=== PATIENT | male | born 1950 | race Caucasian/White ===

== ENCOUNTER 2022-09-27 15:04 | Outpatient (CLI) | payer MEDICARE, SELFPAY ==
[2022-09-27 22:10] LABS: Albumin* 3.9 g/dL (3.3-5.0); Chloride* 102 mmol/L (96-114); Potassium* 4.2 mmol/L (3.6-5.1); Sodium* 138 mmol/L (135-149)
[2022-09-27 22:12] LABS: Creatinine* 0.7 mg/dL (0.5-1.5); Estimated Glomerular Filt Rate 99 ml/min
[2022-09-27 22:13] LABS: Alanine Aminotransferase* 9 U/L (4-50); Alkaline Phosphatase* 58 U/L (40-150); Aspartate Amino Transferase* 24 U/L (12-35); Bilirubin Total* 0.7 mg/dL (0.1-1.5); Blood Urea Nitrogen* 19 mg/dL (7-30); Carbon Dioxide* 33 mmol/L (20-32); Glucose* 96 mg/dL (60-115); Total Protein* 6.7 g/dL (6.0-8.3)
== END 2022-09-27 15:05 | disposition home or self-care (01) ==
PROVIDERS: PCP Family Medicine; Visit Provider Family Medicine
DX: G90.3 Multi-system degeneration of the autonomic nervous system (principal); I73.00 Raynaud's syndrome without gangrene; R60.9 Edema, unspecified
CPT/HCPCS: 80053; 84443

== ENCOUNTER 2022-10-03 13:53 | Outpatient (CLI) | payer MEDICARE, SELFPAY ==
--- NOTE | 2022-10-03 14:00 | CRLHL7_ITS ---
For Patients: As a result of the Century Cures Act, medical imaging exams and procedure reports are released immediately into your electronic medical record. You may view this report before your referring provider. If you have questions, please contact your health care provider. INDICATION: ULCERS ON TOES, EVALUATE PAD TECHNIQUE: Bilateral lower extremity arterial duplex ultrasound with color Doppler and spectral waveform analysis. COMPARISON: None. FINDINGS: Multiple sonographic jarvis-scale images demonstrate atherosclerotic plaque in both lower extremities. Right leg: Systolic velocities are within normal limits. Color Doppler and spectral waveform analysis demonstrates biphasic waveforms are demonstrated throughout. Left leg: Systolic velocities are within normal limits. Color Doppler and spectral waveform analysis demonstrates biphasic waveforms are demonstrated throughout. IMPRESSION: Bilateral atherosclerosis in the lower extremity arteries. No major occlusions or significant stenoses. Dictated by Jake Chaudhary MD @ 10/03/2022 3:27:02 PM (Electronically Signed)
== END 2022-10-03 13:54 | disposition home or self-care (01) ==
LOC: US 13:55
PROVIDERS: PCP Family Medicine; Visit Provider Family Medicine
DX: I73.00 Raynaud's syndrome without gangrene (principal); I70.203 Unspecified atherosclerosis of native arteries of extremities, bilateral legs
CPT/HCPCS: 93926

== ENCOUNTER 2022-10-25 13:31 | Outpatient (CLI) | payer MEDICARE, SELFPAY ==
[2022-10-25 22:00] LABS: Albumin* 4.1 g/dL (3.3-5.0)
[2022-10-25 22:03] LABS: Alkaline Phosphatase* 67 U/L (40-150); Aspartate Amino Transferase* 23 U/L (12-35); Bilirubin Direct* 0.1 mg/dL (0.0-0.5); Bilirubin Total* 0.8 mg/dL (0.1-1.5); Cholesterol* 142 mg/dL (90-199); HDL Cholesterol* 58 mg/dL (>=40); LDL Cholesterol Calculated 72 mg/dL (<100); Total Protein* 7.1 g/dL (6.0-8.3); Triglycerides* 59 mg/dL (40-149)
[2022-10-25 22:04] LABS: Alanine Aminotransferase* 6 U/L (4-50)
[2022-10-27 19:00] LABS: Prostate Specific Antigen Free 0.7 ng/mL; Prostate Specific Antigen%Free 9 %; Prostate Specific AntigenTotal 7.6 ng/mL (0.0-4.0)
== END 2022-10-25 13:32 | disposition home or self-care (01) ==
LOC: LKVREF 13:32
PROVIDERS: PCP Family Medicine; Visit Provider Family Medicine
DX: Z86.39 Personal history of other endocrine, nutritional and metabolic disease (principal); Z87.898 Personal history of other specified conditions; Z12.5 Encounter for screening for malignant neoplasm of prostate; Z13.6 Encounter for screening for cardiovascular disorders
CPT/HCPCS: 80061; 80076; 84153; 84154

== ENCOUNTER 2023-05-07 11:00 | Outpatient (RCR) | payer MEDICARE, SELFPAY ==
--- NOTE | 2022-08-30 14:23 | PT.OPDN ---
PT [place] [facility] Daily Note PT [facility] Daily Note Start: 03/05/22 17:45 Freq: Status: Active Protocol: Document 08/28/22 16:11 BMS (Rec: 08/28/22 16:12 BMS [id number]) E-signed By Yulia Brunson, PT PT OP Daily Progress Note Visit Information Note Type Daily Note,Recert/Progress Note Visit Number [id number] Insurance Authorized Visits no preauth no visit limit [facility] Insurance Information Recert Due Date 09/26/22 Insurance Name Medicare B,[facility] Medical Diagnosis MSA multiple system atrophy Treating Diagnosis abnormal gait, debility/ generalized weakness, impoverished movement, loss of motor control and balance, impaired transfers, transitions, impaired ADL and IADL performance and self cares Referring MD Roxanne Hubbard MD ([facility]) Subjective Subjective walking has really been tough. and balance is gettting tougher over past couple of weeks. am working on the exercises you gave me think they are going well. havent fallen since last time in the closet. Precautions Treatment Precautions/Contraindications MSA -P falls autonomic, hypotension w standing may be asymptomatic edema B f Home Exercise Home Exercise Comments Access Code: [email or web address] URL: [email or web address] Date: 08/14/2022 Prepared by: Yulia Brunson Exercises ? Supine Bridge - 1 x daily - 5 x weekly - 1-3 sets - 10-20 reps - 5-10 sec hold ? Supine Active Straight Leg Raise - 1 x daily - 5 x weekly - 1-3 sets - 10-20 reps - 5- 10 sec hold ? Sidelying Hip Abduction - 1 x daily - 5 x weekly - 1-3 sets - 10-20 reps - 5-10 sec hold - hold 30-60 sec stretch ? Supine Lower Trunk Rotation - 1 x daily - 5 x weekly - 1-3 sets - 10-20 reps - 5-10 sec hold ? Seated Hamstring Stretch with Chair - 3 x daily - 5 x weekly - 1-3 sets - hold 30-60 sec stretch Objective Other/Pertinent Objective all gait and balance w gait belt and therapist assist for safety: Patient Instructed in Risks/Benefits Yes Therapeutic Exercise Therapeutic Exercise Minutes (minutes) 30 Therapeutic Exercise: To Restore HS and calf stretches Functional Status prone anterior structure stretches add knee flex x 10 each side, then hip windshield wipers for control B. 2# shoulder flex w TA x 10, 2# chest press each UE x 10 tricep 1# x 10 b bug x 10 alternating sides prone to quadruped amb for endurance dynamic stretch and functional strength 150' FWW with much more difficult gait pattern, required total assist x 3 for LOB in several directions. Therapeutic Activity Therapeutic Activity Minutes (minutes) 15 Therapeutic Activities Comments - sit/ stand 4 x 5 with increased speed and varied height surface. use of ue on walker and one on surface. focus on full upright, controlled descent and balance when upright - declined floor transfer which is gillespie with his fatigue after gait today. - bed mobility with cues to push through LE and reach through UE. Neuromuscular Re-Ed Neuromuscular Reeducation Minutes ( 15 minutes) Neuromuscular Reeducation Comments all gait and balance w gait belt and therapist assist for safety: - work at parallel bars for turns without LOB, - NBOS EO, EC< with head turns x x10, nods x 10 UE raise hands from bar x 10. marching x 10 w UE support PRN and mod assist by therapist Treatment Minutes Timed Code Treatment Minutes 60 Total Treatment Time 60 Billing Units Neuromuscular Reeducation Units 1 Therapeutic Activity Units 1 Therapeutic Exercise Units 2 Assessment/Impression Assessment/Impression Patient continues to benefit from skilled physical therapy to work on balance and transfers. Gait is used in clinic to work on endurance, active stretch and functional strength as well as balance, does still use walker at home for mobilization. He has precarious balance at times but feels that after therapy session is better able to stabilize for several days. Patient does have new home program issued mid August with which he is working on at home but is unable to safely and effectively perform transfer balance training challenges and requires cueing for more efficient transfers and bed mobility at home. Skilled therapy to maintain current level of function and to improve technique with mobility and bed mobility Plan of Care Physical Therapy Goals MET 1) Pt and instructed in home program for mobility, flexibility and functional strength PROGRESSING 2) instruct in floor transfers, demo independence or modified I with task MET 3) Pt demo ability to amb 20-30 feet with least restrictive gait aid/none for navigation of home bathroom MET 4) Instruct in home safety and mobility equipment including FWW, bed step, rail etc, and poss Ustep PROGRESSING 5) Patient demo ability to perform all aspects of bed mobility with modified independence and safety PROGRESSING 6) Improved balance (renae posterior) with improved balance strategies to maintain ability to stand and transfer and amb short distances in home Recertification Information Recertification Start Date 08/26/22 Recertification Due Date 09/26/22 Reasons to Continue Skilled Therapy Patient continues to benefit from skilled physical therapy to work on balance and transfers. Gait is used in clinic to work on endurance, active stretch and functional strength as well as balance, does still use walker at home for mobilization. He has precarious balance at times but feels that after therapy session is better able to stabilize for several days. Patient does have new home program issued mid August with which he is working on at home but is unable to safely and effectively perform transfer balance training challenges and requires cueing for more efficient transfers and bed mobility at home. Skilled therapy to maintain current level of function and to improve technique with mobility and bed mobility. He is unable to attain and move through prone at home due to bed, and floor transfers continue to be a concern as he does have hx of falls. Rehabilitation Potential good Continued Plan of Care and Interventions ther ex, neuro re ed, static and dynamic balance, transfer training and adaptation, gait and bed mobility, floor transfers Provider Signature Shows Agreement With POC & Medical Necessity Physician Comment/Change Comment or Changes Physician NPI Number #
--- NOTE | 2022-10-30 12:55 | PT.OPDN ---
PT [place] Out[facility] Daily Note PT [facility] Out[facility] Daily Note Start: 03/05/22 17:45 Freq: Status: Active Protocol: Document 10/30/22 11:12 BMS (Rec: 10/30/22 12:55 BMS [id number]) E-signed By Yulia Brunson, PT PT OP Daily Progress Note Visit Information Note Type Daily Note,Recert/Progress Note Visit Number [id number] Insurance Authorized Visits no preauth no visit limit [facility] Insurance Information Recert Due Date 11/30/22 Insurance Name Medicare B,[facility] Medical Diagnosis MSA multiple system atrophy Treating Diagnosis abnormal gait, debility/ generalized weakness, impoverished movement, loss of motor control and balance, impaired transfers, transitions, impaired ADL and IADL performance and self cares Referring MD Roxanne Hubbard MD ([facility]) Subjective Subjective working on exercises every day . using WC most of the time now but do stand to transfer and in bathroom etc. I feel like therapy is keeping me more mobile and able to work on things here that I cant do at home. Precautions Treatment Precautions/Contraindications MSA -P falls autonomic, hypotension w standing may be asymptomatic edema B f Home Exercise Home Exercise Comments Access Code: [email or web address] URL: [email or web address] Date: 10/30/2022 Prepared by: Yulia Brunson Exercises Sit to Stand with Counter Support - 1 x daily - 5 x weekly - 1-3 sets - 10-20 reps - 5-10 sec hold - hold 30-60 sec stretch Standing Hip Abduction with Counter Support - 1 x daily - 5 x weekly - 1-3 sets - 10-20 reps - 5-10 sec hold - hold 30 -60 sec stretch Heel Raises with Counter Support - 1 x daily - 5 x weekly - 1-3 sets - 10-20 reps - 5-10 sec hold Supine Bridge - 1 x daily - 5 x weekly - 1-3 sets - 10-20 reps - 5-10 sec hold Supine Heel Slide - 1 x daily - 5 x weekly - 1-3 sets - 10- 20 reps - 5-10 sec hold Hooklying Shoulder I - 1 x daily - 5 x weekly - 1-3 sets - 10-20 reps - 5-10 sec hold Curl Up with Reach - 1 x daily - 5 x weekly - 1-3 sets - 10- 20 reps - 5-10 sec hold Seated Scapular Protraction with Resistance - 1 x daily - 5 x weekly - 1-3 sets - 10-20 reps - 5-10 sec hold Supine Knee and Hip Extension with Resistance - 1 x daily - 5 x weekly - 1-3 sets - 10-20 reps - 5-10 sec hold Objective Other/Pertinent Objective all gait and balance w gait belt and therapist assist for safety: Patient Instructed in Risks/Benefits Yes Therapeutic Exercise Therapeutic Exercise Minutes (minutes) 30 Therapeutic Exercise: To Restore Access Code: [email or web address] Functional Status URL: [email or web address] Date: 10/30/2022 Prepared by: Yulia Ribeiro Sit to Stand with Counter Support - 1 x daily - 5 x weekly - 1-3 sets - 10-20 reps - 5-10 sec hold - hold 30-60 sec stretch Standing Hip Abduction with Counter Support - 1 x daily - 5 x weekly - 1-3 sets - 10-20 reps - 5-10 sec hold - hold 30 -60 sec stretch Heel Raises with Counter Support - 1 x daily - 5 x weekly - 1-3 sets - 10-20 reps - 5-10 sec hold Supine Bridge - 1 x daily - 5 x weekly - 1-3 sets - 10-20 reps - 5-10 sec hold Supine Heel Slide - 1 x daily - 5 x weekly - 1-3 sets - 10- 20 reps - 5-10 sec hold Hooklying Shoulder I - 1 x daily - 5 x weekly - 1-3 sets - 10-20 reps - 5-10 sec hold Curl Up with Reach - 1 x daily - 5 x weekly - 1-3 sets - 10- 20 reps - 5-10 sec hold Seated Scapular Protraction with Resistance - 1 x daily - 5 x weekly - 1-3 sets - 10-20 reps - 5-10 sec hold Supine Knee and Hip Extension with Resistance - 1 x daily - 5 x weekly - 1-3 sets - 10-20 reps - 5-10 sec hold - prone prop for stretching anterior - prone HS curls x 10 L, x 10 R. - manual stretches hips ER/IR and ext - Therapeutic Activity Therapeutic Activity Minutes (minutes) 20 Therapeutic Activities Comments sit/ stand 3 x 5 with significant cueing for speed, mod to max assist x initial few reps due to poverty of initiation. Work on in/out of bed today required max assist for LE management. bed mobility including roll from supine to side L x 5, R x 5, to belly. - prone to quadruped and back down with max assist x 3. Neuromuscular Re-Ed Neuromuscular Reeducation Minutes ( 13 minutes) Neuromuscular Reeducation Comments - standing balance with cone of stability challenges at walker in front and mat behind . x 10 Ant, x 10 post, x 10 A/ P - lateral weight shifts x 10 - marching in place - quadruped weight shifts through UE x 10 lateral, then from quad to robert pose x 10 Treatment Minutes Timed Code Treatment Minutes 63 Total Treatment Time 63 Billing Units Neuromuscular Reeducation Units 2 Therapeutic Activity Units 1 Therapeutic Exercise Units 1 Assessment/Impression Assessment/Impression patient demo increased difficulty freezing and rigidity noted today, even with cueing increased difficulty with balance and mobility. worked also on bed mobility. patient remains appropriate for maintenance and decline prevention strategies. Today did require increased assist for LE management in bed, and therapist did have total assist for patient LOB when transitioning sidelying ot sit . sit to stand significantly slowed, < 5 reps in 30 sec. after session was able to perform much more efficiently and quickly. however patient was able to transition from sidelying to prone with min assist for stretching anterior structures and strengthening posterior. Still responds well to stimulability and maintains adaptations as physically able. Plan of Care Physical Therapy Goals MET 1) Pt and instructed in home program for mobility, flexibility and functional strength PROGRESSING 2) instruct in floor transfers, demo independence or modified I with task MET 3) Pt demo ability to amb 20-30 feet with least restrictive gait aid/none for navigation of home bathroom MET 4) Instruct in home safety and mobility equipment including FWW, bed step, rail etc, and poss Ustep PROGRESSING 5) Patient demo ability to perform all aspects of bed mobility with modified independence and safety PROGRESSING 6) Improved balance (renae posterior) with improved balance strategies to maintain ability to stand and transfer and amb short distances in home Daily Plan of Care Continue per POC Daily Plan of Care Comments functional strength, mobility, balance, gait, ROM, transfers Recertification Information Recertification Start Date 10/30/22 Recertification Due Date 11/30/22 Reasons to Continue Skilled Therapy Patient continues to benefit from skilled physical therapy to work on balance and transfers, adding in bed mobility and adaptive skills as he condition progresses. Gait is used in clinic to work on endurance, active stretch and functional strength as well as balance, does still use walker at home in limited dose for mobilization. He has precarious balance at times but feels that after therapy session is better able to stabilize for several days. Patient does have new home program issued today, with which he is working on at home but is unable to safely and effectively perform transfer balance training challenges and requires cueing for more efficient transfers and bed mobility at home. Skilled therapy to maintain current level of function and to improve technique with mobility and bed mobility. He is unable to attain and move through prone at home due to bed, and floor transfers continue to be a concern as he does have hx of falls. Rehabilitation Potential good Continued Plan of Care and Interventions continue working on ther ex, neuro re ed, static and dynamic balance, transfer training and adaptation, gait and bed mobility, floor transfers as able. adaptive equipment recommendations and modifications adaptations to home program as disease progresses until such time that he needs home care Provider Signature Shows Agreement With POC & Medical Necessity Physician Comment/Change Comment or Changes
--- NOTE | 2022-12-06 13:50 | PT.OPDN ---
PT [place] Out[facility] Daily Note PT [facility] Daily Note Start: 03/05/22 17:45 Freq: Status: Active Protocol: Document 12/05/22 18:20 BMS (Rec: 12/05/22 18:23 BMS [id number]) E-signed By Yulia Brunson, PT PT OP Daily Progress Note Visit Information Note Type Daily Note,Recert/Progress Note Visit Number [id number] Insurance Authorized Visits no preauth no visit limit [facility] Insurance Information Recert Due Date 01/04/23 Insurance Name Medicare B,[facility] Medical Diagnosis MSA multiple system atrophy Treating Diagnosis abnormal gait, debility/ generalized weakness, impoverished movement, loss of motor control and balance, impaired transfers, transitions, impaired ADL and IADL performance and self cares Referring MD Roxanne Hubbard MD ([facility]) Subjective Subjective walking around house more for exercise, harder to control saliva and speech, slower and more tight overall. Precautions Treatment Precautions/Contraindications MSA -P falls autonomic, hypotension w standing may be asymptomatic edema B f Home Exercise Home Exercise Comments Access Code: [email or web address] URL: [email or web address]/ Date: 10/30/2022 Prepared by: Yulia Brunson Exercises Sit to Stand with Counter Support - 1 x daily - 5 x weekly - 1-3 sets - 10-20 reps - 5-10 sec hold - hold 30-60 sec stretch Standing Hip Abduction with Counter Support - 1 x daily - 5 x weekly - 1-3 sets - 10-20 reps - 5-10 sec hold - hold 30 -60 sec stretch Heel Raises with Counter Support - 1 x daily - 5 x weekly - 1-3 sets - 10-20 reps - 5-10 sec hold Supine Bridge - 1 x daily - 5 x weekly - 1-3 sets - 10-20 reps - 5-10 sec hold Supine Heel Slide - 1 x daily - 5 x weekly - 1-3 sets - 10- 20 reps - 5-10 sec hold Hooklying Shoulder I - 1 x daily - 5 x weekly - 1-3 sets - 10-20 reps - 5-10 sec hold Curl Up with Reach - 1 x daily - 5 x weekly - 1-3 sets - 10- 20 reps - 5-10 sec hold Seated Scapular Protraction with Resistance - 1 x daily - 5 x weekly - 1-3 sets - 10-20 reps - 5-10 sec hold Supine Knee and Hip Extension with Resistance - 1 x daily - 5 x weekly - 1-3 sets - 10-20 reps - 5-10 sec hold Objective Other/Pertinent Objective all gait and balance w gait belt and therapist assist for safety: Patient Instructed in Risks/Benefits Yes Therapeutic Exercise Therapeutic Exercise Minutes (minutes) 15 Therapeutic Exercise: To Restore on wedge with pillow to Functional Status elevate head/torso resulted in better secretion control and better speech pattern and loudness - 2 x 30-60 sec B stretches for hip flex, ext, knee ext, ER and IR of hip. - heel slides x 10 each side - bridging x 15 - seated LAQ x 10 each side - seated green tband HS curl x 10 each side - red band eversion and plantarflexion - green weighted bar shoulder flex x 8, chest press x 8 LE B. increased rigidity noted this date. Therapeutic Activity Therapeutic Activity Minutes (minutes) 21 Therapeutic Activities Comments bed and chair repositioning instruct in tricep ext for lift to scoot and for scoot one LE then contralateral LE - sit/ stand 3 x 5 with significant cueing for speed, mod to max assist x initial few reps due to poverty of initiation. - Work on in/out of bed today required max assist for LE management. - bed mobility up and down, to side, bridging - standing reach into cupboard with max assist by therapist for balance x 10 green weight bar, then rest, then unilateral 8 oz bottle x 10 each side - forward bend to tall mat and return to upright with max assist by therapist x 10 with turn to put pillow from inth to his 4WW Neuromuscular Re-Ed Neuromuscular Reeducation Minutes ( 24 minutes) Neuromuscular Reeducation Comments in parallel bars, with gait belt and therapist assist: forward step to target tape then WB through LE x 10 L, R - stagger stance weight shifts x 10 each foot leading - side steps 4 x 5 - back steps max assist required. post lean with recovery x 10 foot placement proprioception x 10 flat floor, - standing balance with cone of stability challenges at walker in front and mat behind . x 10 Ant, x 10 post, x 10 A/ P - lateral weight shifts x 10 - marching in place Treatment Minutes Timed Code Treatment Minutes 60 Total Treatment Time 60 Billing Units Neuromuscular Reeducation Units 2 Therapeutic Activity Units 1 Therapeutic Exercise Units 1 Assessment/Impression Assessment/Impression patient demo signs of advancing disease, working to combat loss of mobility and flexibility. Also working on breath work during exercises to hopefully prevent pneumonia , renae with increased difficulty controlling secretions is at higher risk of aspiration. Focus more on functional tasks and fall prevention with transfers, balance and functional strength and mobility. patient is appropriate to continue skilled physical therapy to maintain level of function and adapt to progressive loss in chronic disease. Plan of Care Physical Therapy Goals MET 1) Pt and instructed in home program for mobility, flexibility and functional strength unable, has lost ths ability 2 ) instruct in floor transfers, demo independence or modified I with task MET ONLY WIth max assist and energy use prohibitive for daily use 3) Pt demo ability to amb 20-30 feet with least restrictive gait aid/none for navigation of home bathroom MET 4) Instruct in home safety and mobility equipment including FWW, bed step, rail etc, and poss Ustep PROGRESSING 5) Patient demo ability to perform all aspects of bed mobility with modified independence and safety continuing to work to maintain 6) Improved balance (renae posterior) with improved balance strategies to maintain ability to stand and transfer and amb short distances in home Daily Plan of Care Continue per POC Daily Plan of Care Comments functional strength, mobility, balance, gait, ROM, transfers Recertification Information Recertification Start Date 12/05/22 Recertification Due Date 01/04/23 Reasons to Continue Skilled Therapy patient demo signs of advancing disease including increased rigidity, increased difficulty communicating, slowed and poverty of motion, ataxia, weakness, loss of hip and knee extension, delayed initiation. able to demo increased speed and size of motions with cueing and assist . , working to combat loss of mobility and flexibility. Also working on breath work during exercises to hopefully prevent pneumonia, renae with increased difficulty controlling secretions is at higher risk of aspiration. Focus more on functional tasks and fall prevention with transfers, balance and functional strength and mobility. patient is appropriate to continue skilled physical therapy to maintain level of function and adapt to progressive loss in chronic disease. Rehabilitation Potential excellent motivation, unfortunately progressive neurodegenerative disease Continued Plan of Care and Interventions transfers, functional strength , ROM and stretching, balance and functional tasks to maximize independence to allow remain in own home with as caregiver Provider Signature Shows Agreement With POC & Medical Necessity Physician Comment/Change Comment or Changes Physician NPI Number #
--- NOTE | 2023-03-26 13:30 | PT.OPDN ---
PT [facility] Daily Note PT [facility] Out[facility] Daily Note Start: 03/05/22 17:45 Freq: Status: Active Protocol: Document 03/26/23 13:19 BMS (Rec: 03/26/23 13:30 BMS [id number]) E-signed By Yulia Brunson, PT PT OP Daily Progress Note Visit Information Note Type Daily Note Visit Number [id number] Insurance Information Recert Due Date 04/26/23 Insurance Name Medicare B,[employer] Medical Diagnosis MSA multiple system atrophy Treating Diagnosis abnormal gait, debility/ generalized weakness, impoverished movement, loss of motor control and balance, impaired transfers, transitions, impaired ADL and IADL performance and self cares Referring MD Roxanne Rainey, Anna GODFREY, Subjective Subjective had 1 fall since I saw you last time. feel more weakness no pain though shoulders and knees are really tight. doing the exercises every morning. still can do bed mobility by myself but Tatiana is helping me into bed now Precautions Treatment Precautions/Contraindications MSA -P falls autonomic, hypotension w standing may be asymptomatic edema B f Home Exercise Home Exercise Comments Supine Heel Slide - 1 x daily - 5 x weekly - 1-3 sets - 10- 20 reps - 5-10 sec hold Hooklying Shoulder I - 1 x daily - 5 x weekly - 1-3 sets - 10-20 reps - 5-10 sec hold Curl Up with Reach - 1 x daily - 5 x weekly - 1-3 sets - 10- 20 reps - 5-10 sec hold Seated Scapular Protraction with Resistance - 1 x daily - 5 x weekly - 1-3 sets - 10-20 reps - 5-10 sec hold Supine Knee and Hip Extension with Resistance - 1 x daily - 5 x weekly - 1-3 sets - 10-20 reps - 5-10 sec hold Objective Patient Instructed in Risks/Benefits Yes Therapeutic Exercise Therapeutic Exercise Minutes (minutes) 30 Therapeutic Exercise: To Restore curlups from plinth x 10, sit Functional Status backs from upright with therapist assist x10 stretches 3 x60 sec HS each side, then 3 x 60 sec B calf stretches. marching standing, encouraged to stomp as well to get the neural input. and working on foot placement for stance LAQ x 10 each side after HS and calf stretches by therapist HS stretches 2 x60 sec B green bar overhead press x 10 green bar shoulder flex in recline on wedge x 10, chest press green bar x 10, 4# x 10, skull crusher screen repairer w green bar x 10 tricep ext green bar @ x 10 L, R bicep curls 3# 10 B green bar chest press x 15 bridge w ball adduct x 10 ambulate with Ustep walker 4 x 15' with therapist CGA and gait belt. to access parallel bars, large mat table and to power chair. work on balance in standing, chair transfers and assist for balance corrections and cues. Therapeutic Activity Therapeutic Activity Minutes (minutes) 15 Therapeutic Activities Comments - sit/ stand 3 x 5 (power chair, green room chair, plinth) mod assist by therapist and cues for shifting weight forward, driving down through LE to floor, and tucking bottom under in standing -worked on self repositioning in chair in front of mirror using parallel bars for UE assist. worked also on pushing self up with UE to move LE forward and sideways -bed mobility with roll to side, side to sit Neuromuscular Re-Ed Neuromuscular Reeducation Minutes ( 15 minutes) Neuromuscular Reeducation Comments worked on seated posture to combat R slump/lean that is developing. lateral weight shifts x 5 with UE stretch to side over head each side, then x 10 w UE crossed on chest while seated balance reactions in unsupported sitting wtih twists x 10 each direction, head nods and rotations, and with external perturbations. encouraged to sit tall in chair without leaning on back rest to work on this safely at home n parallel bars, with gait belt and therapist assist: forward step to target tape then WB through LE x 10 L, R - stagger stance weight shifts x 10 each foot leading - side steps 4 x 5 - back steps max assist required. post lean with recovery x 10 foot placement proprioception x 10 flat floor, - standing balance with cone of stability challenges at walker in front and mat behind . x 10 Ant, x 10 post, x 10 A/ P - lateral weight shifts x 10 - marching in place [ End ] Treatment Minutes Timed Code Treatment Minutes 60 Total Treatment Time 60 Billing Units Neuromuscular Reeducation Units 1 Therapeutic Activity Units 1 Therapeutic Exercise Units 2 Assessment/Impression Assessment/Impression patient has progressed to level of care needing more assist with degenerative disease. atrophy evident in arms, legs and face as well as R sided weakness more prominent. working primarily on transfer strength and technique, balance with standing for transfers to reduce caregiver load, alternate strategies for transfers and transitions including bed mobility, and for seated balance and stability. Poverty of motion has progressed and slowness of same. rhythmic clapping has been incorporated to assist in speed and rhythm of movment. patient continues to be motivated and great participation however memory decline is becoming more apparent as well, and is having much difficulty with secretion management - did have botox again yest says would be 2 weeks to see difference with higher dose. also continue to work on ways to keep him as active as possible to participate in family time such as donaldson this and quality of life. Plan of Care Physical Therapy Goals 1) Pt demo modified independent bed mobility for in/out of bed and positioning to reduce risk of pressure ulcers. 2) Pt demo safe transfers with stand by assist or min assist from variety of surfaces and environments to allow modified independence and refduce caregiver load. 3) Pt demo ability to perform adaptive home program for functional strength, ROM, transfers balance and mobility to reduce risk of falls and improve self mobility in home and community. 4) Patient participate in home and clinic programs to maintain Daily Plan of Care Comments Remains appropriate for skilled physical therapy to maintain independence to decrease caregiver load, for longevity and management of chronic degenerative conditions. appropriate for work on modified transfers and transitions, weightbearing for lung clearing and cardiovascular benefits as well as bone density, ther ex for strength and neuro for balance Recertification Information Recertification Start Date 03/26/23 Recertification Due Date 04/24/23 Reasons to Continue Skilled Therapy see assessment Rehabilitation Potential maintenance and training in degenerative disease Continued Plan of Care and Interventions ther ex, neuro inna, ther activity, ther exercise, ROM/ balance gait, self care, caregiver instruction, equipment assist as able Provider Signature Shows Agreement With POC & Medical Necessity Physician Comment/Change Comment or Changes Physician NPI Number #
--- NOTE | 2023-05-07 13:00 | PT.OPDN ---
PT [facility] Daily Note PT [facility] Outpatient Daily Note Start: 03/05/22 17:45 Freq: Status: Active Protocol: Document 05/07/23 12:48 BMS (Rec: 05/07/23 12:59 BMS [id number]) E-signed By Yulia Brunson, PT PT OP Daily Progress Note Visit Information Note Type Daily Note Visit Number [id number] Insurance Authorized Visits no preauth no visit limit [facility] Insurance Information Recert Due Date 06/06/23 Insurance Name Medicare B,[facility] Medical Diagnosis MSA multiple system atrophy Treating Diagnosis abnormal gait, debility/ generalized weakness, impoverished movement, loss of motor control and balance, impaired transfers, transitions, impaired ADL and IADL performance and self cares Referring MD Roxanne Hubbard MD [facility], Anna GODFREY, Subjective Subjective accompanied by today, who adds to the subjective. she states patient is losing functional ability including standing balance and transfers , requires mod to max assist for transfers but still is able to move more at therapy. Also having more episodes of low blood pressure, renae after meals but at seemingly random times. intending to followup with team at [place], also increased difficulty with swallowing saliva but does not have issues with managemetnt at night Precautions Treatment Precautions/Contraindications MSA -P falls autonomic, hypotension w standing may be asymptomatic edema B f Home Exercise Home Exercise Comments Supine Heel Slide - 1 x daily - 5 x weekly - 1-3 sets - 10- 20 reps - 5-10 sec hold Hooklying Shoulder I - 1 x daily - 5 x weekly - 1-3 sets - 10-20 reps - 5-10 sec hold Curl Up with Reach - 1 x daily - 5 x weekly - 1-3 sets - 10- 20 reps - 5-10 sec hold Seated Scapular Protraction with Resistance - 1 x daily - 5 x weekly - 1-3 sets - 10-20 reps - 5-10 sec hold Supine Knee and Hip Extension with Resistance - 1 x daily - 5 x weekly - 1-3 sets - 10-20 reps - 5-10 sec hold Objective Patient Instructed in Risks/Benefits Yes Therapeutic Exercise Therapeutic Exercise Minutes (minutes) 28 Therapeutic Exercise: To Restore -prolonged stretches B hips Functional Status for rotation, extension, adductor mobility and piriformis and glute, calves -bridges with UE over chest x 15 -chest press x 10 2# -overhead stretch with UE above on wedge, LE extended and breath work to allow opening of anterior chain and diaphragm for secretion clearing from lungs to reduce risk of aspiration pneumonia -green band HS curls, LAQ -2# bar UE overhead to 90 as tolerated x 10 - breathing in seated and hooklying -curl ups x 5 -rotations hooklying low trunk w abdominal control x 10 -HS curl green x 10 B -scap retract in sitting -chin tuck in supine x 10 - manual UT stretches standing hip abduct x 10, ext x 10, marching x 10, heel raises x 10, toe raises x 10 Therapeutic Activity Therapeutic Activity Minutes (minutes) 15 Therapeutic Activities Comments scooting forward and side on plinth, bed mobility and in/ out of bed, and chair repositioning for pressure relief. -sit/stand significant cueing, required max assist for controlled sit and stand Neuromuscular Re-Ed Neuromuscular Reeducation Minutes ( 20 minutes) Neuromuscular Reeducation Comments -seated balance reaching x 10 lateral up, down to floor and rotational -fwd step x 10 each LE blocked , retro step x 10 B, abduct x 10B -90 deg turns x 5 -step over x 5 each side HELD today -balance w/o UE assist w head nods and turns x 5each total assist required to correct x 5 Treatment Minutes Timed Code Treatment Minutes 63 Total Treatment Time 63 Billing Units Neuromuscular Reeducation Units 1 Therapeutic Activity Units 1 Therapeutic Exercise Units 2 Assessment/Impression Assessment/Impression Plan to research poss wheelchair options for inside home as powerchair may not get in/out of house. Needs tilt in space options for low blood pressure, does have issues with pressure and would need pressure relieving seat cushion, may benefit from incentive spirometer to keep breathing mm strong renae with cold/ flu season approaching. Will also investigate further options for management of low BP such as poss pressure etc, however is already wearing compression stockings. Patient is losing strength and demo increased poverty of motion with all movements, requiring increased assist. Did work on recline to sit EOB w , patient able to perfrom this I this date however does require significant assist in AM, poss due to LE managment on softer surface than mat/ plinth. Plan of Care Physical Therapy Goals 1) Pt demo modified independent bed mobility for in/out of bed and positioning to reduce risk of pressure ulcers. 2) Pt demo safe transfers with stand by assist or min assist from variety of surfaces and environments to allow modified independence and refduce caregiver load. 3) Pt demo ability to perform adaptive home program for functional strength, ROM, transfers balance and mobility to reduce risk of falls and improve self mobility in home and community. 4) Patient participate in home and clinic programs to maintain Daily Plan of Care Continue per POC Daily Plan of Care Comments Remains appropriate for skilled physical therapy to maintain modified independence and equipment recommendations to decrease caregiver load, for longevity and management of chronic degenerative conditions. appropriate for work on modified transfers and transitions, weightbearing for lung clearing and cardiovascular benefits as well as bone density, ther ex for strength and neuro for balance Recertification Information Recertification Start Date 04/30/23 Recertification Due Date 06/06/23 Reasons to Continue Skilled Therapy see assessment Rehabilitation Potential fair, shows excellent participation and motivation of and patient maintenance and training in degenerative disease Continued Plan of Care and Interventions ther ex, neuro inna, ther activity, ther exercise, ROM/ balance gait, self care, caregiver instruction, equipment assist as able Provider Signature Shows Agreement With POC & Medical Necessity Physician Comment/Change Comment or Changes Physician NPI Number #
== END 2023-08-22 23:59 | disposition home or self-care (01) ==
PROVIDERS: PCP Family Medicine; Visit Provider Family Medicine
DX: G90.3 Multi-system degeneration of the autonomic nervous system (principal); R26.9 Unspecified abnormalities of gait and mobility; M62.81 Muscle weakness (generalized); R26.81 Unsteadiness on feet; Z51.89 Encounter for other specified aftercare
CPT/HCPCS: 97110; 97112; 97116; 97140; 97530; 97535